=== PATIENT | female | born 2000 | race Caucasian/White ===

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

== ENCOUNTER 2024-12-05 13:33 | Emergency (ER) | payer BC, SELFPAY ==
[2024-12-05] VITALS (12 sets, daily range): BP systolic 109–178; BP diastolic 69–92; PULSE 80–158; RESP 11–24; TEMP 36.8–37.1; O2SAT 98–100; BMI 27.1
--- NOTE | 2024-12-05 13:39 | PC.NURSE ---
pt placed in seizure precautions.
--- NOTE | 2024-12-05 13:40 | ED_ITS ---
<Statement entered by Oscar Zheng MD - 12/06/24 04:17> I was consulted by the TRIXIE, and we discussed the complexity of the problems being addressed. I approve the treatment and management plan for this patient's care in the emergency department, thus performing a substantive portion of the medical decision making. Repeat EKG appears unchanged and is normal sinus rhythm, no STEMI. Patient provided seizure precautions by previous provider. Oscar Zheng MD Discharge Plan Disposition Patient Disposition: Home, Self-Care Condition: Good Prescriptions Prescriptions: No Action triamcinolone acetonide 0.1 % ointment 1 applic topical BID Qty: 30 0RF Referrals Follow up/Referrals: Stacy Martínez APRN [Primary Care Provider, Medical] - See instructions Activity Restrictions/Add. Instructions Additional Instructions/Restrictions: You were evaluated on an emergency basis. It is very important that you follow- up with your primary care provider and any specialist who we discussed within the next 2 days in order to better assess your health more comprehensively. For example, incidental findings on imaging or laboratory results that were performed today may be discovered, which do not require immediate medical care, but may impact your health in the future. If your symptoms worsen or persist, please return to the emergency department immediately for reassessment. Take all medications as prescribed. In queue for allowing me to participate in your health care, and I hope you feel better soon. Clinical Impressions Clinical Impression: Seizure Instructions Patient Instructions: DI for Seizure (Not Epilepsy/Seizure Disorder) Print Language Print Language: Sami Discharge ED Provider: Joseph Hanson General Adult HPI <Riri Perez - Last Filed: 12/05/24 17:52> General Chief complaint: Neuro Symptoms/Deficit Stated complaint: Poss Seizure Time Seen by Provider: 12/05/24 13:41 History of Present Illness HPI narrative: Independently interpreted by me rate is 146, rhythm is regular, axis is normal, no ST elevation anatomical contiguous leads, sinus tachycardia, QTc 394. 24-year-old female presents emergency department with complaints of seizure activity prior to arrival. Reports that she has a history of partial seizures and was followed by [facility] neurology. States that she has not had seizure-like activity for the past 3 years and was weaned off her medications approximately 3 years ago as well. She states that she recently developed poison paco and was given a steroid shot yesterday as well as starting antihistamines for treatment of the symptoms. She states today seizure-like activity was similar to her previous where she gets numb feeling all over her body with disorientation. She states that she does not lose consciousness. She also denies bowel or bladder incontinence. Related Data Previous Rx's ?Medication ?Instructions ?Recorded triamcinolone acetonide 0.1 % 1 applic topical BID #30 grams 12/04/24 topical ointment Allergies Allergy/AdvReac Type Severity Reaction Status Date / Time No Known Allergies Allergy Verified 06/25/24 18:43 <Joseph Hanson MD - Last Filed: 12/05/24 15:09> History of Present Illness HPI narrative: Independently interpreted by me rate is 146, rhythm is regular, axis is normal, no ST elevation anatomical contiguous leads, sinus tachycardia, QTc 394. PFSH <Riri Perez - Last Filed: 12/05/24 17:52> [facility] Disclaimer: The information contained in this section may have been updated after the patient was seen, as this information can be updated by other users. Medical History Cat scratch of forearm Cat scratch Social History Smoking Status: Never smoker alcohol intake: never current occupational status: student Travel in the last 8 weeks?: None housing: house Have you lived/traveled outside US in past 30 days?: No Contact w/someone who lives/traveled outside US past 30 days?: No Exposure to someone with infectious disease in past 14 days?: No Do you have a fever (greater than 100.4 F or 38 C)?: No Have you tested positive for COVID-19?: No Exposed to someone with COVID-19 in past 14 days?: No Do you have a sore throat?: No Do you have a cough?: No Do you have any weakness?: No Do you have any diarrhea?: No Are you experiencing any unusual bleeding?: No Do you have any muscle aches/pain?: No Do you have any abdominal pain?: No Are you experiencing loss of taste or smell?: No Other Medical History Have you received the Flu Vaccine for this season: No Have you received the Pneumonia Vaccine: No <Riri Perez - Last Filed: 12/05/24 17:52> Musculoskeletal Musculoskeletal: Reports numbness and Reports tingling Neurologic Neurologic: Reports confusion, Reports numbness and Reports tingling <Joseph Hanson MD - Last Filed: 12/05/24 15:09> ROS Obtained: Yes Systems reviewed as appropriate & no additional complaints except as documented Physical Exam <Riri Handleystan - Last Filed: 12/05/24 17:52> Narrative Physical exam: General: Awake, aware, in no acute distress HEENT: Normal cephalic, no evidence of trauma, PERRLA, EOMI CV: RRR, no murmurs, rubs, or gallops Pulm: CTA bilaterally with no rhonchi, rales, or wheezes ABD: Nontender, no swelling, guarding, or rebound Neuro: ANO x 4, GCS 15, no focal deficits noted Psych: Anxious but cooperative General General appearance: anxious Respiratory Respiratory exam: Present normal lung sounds bilaterally Cardiovascular Cardiovascular exam: Present tachycardia <Joseph Hanson MD - Last Filed: 12/05/24 15:09> General General appearance: alert and anxious Respiratory Respiratory exam: Absent respiratory distress Cardiovascular Cardiovascular exam: Present tachycardia Neurological Exam Neurological exam: Present alert and CN II-XII intact Medical Decision Making <Riripb Perez - Last Filed: 12/05/24 17:52> Medical Records Screening: Per USPSTF and CDC recommendations, given the prevalence of disease in our region, it is our hospital?s policy to screen for HIV and viral Hepatitis for all patients aged 18 and over and those with ongoing risk factors. Vital Signs: 12/05/24 13:46 12/05/24 13:49 12/05/24 14:01 Temperature 98.2 F 98.7 F Temperature Source Temporal Artery Scan Oral Pulse Rate 109 H 119 H Pulse Rate [Left Radial] 158 H Respiratory Rate 24 16 20 Blood Pressure 157/87 H 157/87 H Blood Pressure [Left Arm] 178/92 H Blood Pressure Mean 110 Blood Pressure Mean [Left Arm] 120 Blood Pressure Source [Left Arm] Automatic Cuff Blood Pressure Position [Left Arm] Sitting 02 Sat by Pulse Oximetry 100 99 98 Oxygen Delivery Method Room Air Room Air 12/05/24 14:17 12/05/24 14:30 12/05/24 15:01 Temperature Temperature Source Pulse Rate 92 H 92 H 111 H Pulse Rate [Left Radial] Respiratory Rate 16 16 21 Blood Pressure 124/74 131/83 135/82 Blood Pressure [Left Arm] Blood Pressure Mean 104 99 107 Blood Pressure Mean [Left Arm] Blood Pressure Source [Left Arm] Blood Pressure Position [Left Arm] 02 Sat by Pulse Oximetry 98 98 100 Oxygen Delivery Method 12/05/24 15:30 12/05/24 16:13 12/05/24 16:31 Temperature Temperature Source Pulse Rate 95 H 86 90 Pulse Rate [Left Radial] Respiratory Rate 13 11 L 18 Blood Pressure 136/91 H 109/73 L 132/69 Blood Pressure [Left Arm] Blood Pressure Mean Blood Pressure Mean [Left Arm] Blood Pressure Source [Left Arm] Blood Pressure Position [Left Arm] 02 Sat by Pulse Oximetry 99 98 100 Oxygen Delivery Method Lab Data Lab Results 12/05/24 13:41: POC Glucose 99 12/05/24 13:45: WBC 12.6 H, RBC 4.86, Hgb 15.2, Hct 42.1, MCV 86.6, MCH 31.3 H, MCHC 36.1 H, RDW 11.1 L, Plt Count 346, MPV 9.4, Neut % (Auto) 57.0, Lymph % (Auto) 34.3, [place] % (Auto) 7.1, Eos % (Auto) 1.1, Baso % (Auto) 0.3, Neut # (Auto) 7.2, Lymph # (Auto) 4.3, [place] # (Auto) 0.9, Eos # (Auto) 0.1, Baso # (Auto) 0.0, D-Dimer 0.49, Sodium 141, Potassium 3.3 L, Chloride 108 H, Carbon Dioxide 14 L, Anion Gap 22.3 H, BUN 8, Creatinine 0.80, Estimated Creat Clear 124, Estimated GFR 89, Est GFR ( Amer) 108, Glucose 113 H, Calcium 10.2, Magnesium 1.6, Total Bilirubin 0.6, AST 41 H, ALT 28, Alkaline Phosphatase 80, Troponin I < 0.01, Total Protein 7.8, Albumin 5.3 H, Globulin 2.5, A lbumin/Globulin Ratio 2.1 H, TSH 3.87, Free T4 1.12, HCG, Quant < 2 12/05/24 14:13: Urine Color Yellow, Urine Appearance Clear, Urine pH 6.0, Ur Specific Wheeler 1.015, Urine Protein Negative, Urine Glucose (UA) Negative, Urine Ketones Negative, Urine Blood 2+ A, Urine Nitrate Negative, Urine Bilirubin Negative, Urine Urobilinogen 0.2, Ur Leukocyte Esterase 1+ A, Urine RBC Occasional, Urine WBC 5-10, Ur Squamous Epith Cells 5-10, Urine Bacteria 2+, Urine Opiates Screen Negative, Urine Methadone Screen Negative, Ur Barbituates Screen Negative, Ur Phencyclidine Scrn Negative, Ur Amphetamines Screen Negative, U Benzodiazepines Scrn Negative, Urine Cocaine Screen Negative, U Marijuana (THC) Screen Negative 12/05/24 16:35: Troponin I < 0.01 12/05/24 13:45 12/05/24 13:45 Orders (Tests/Meds): ED MEDICATIONS Discontinued Medications Generic Name Dose Route Start Last Admin Trade Name Freq PRN Reason Stop Dose Admin Diazepam 2.5 mg 12/05/24 14:55 12/05/24 15:06 Diazepam 10mg/2ml Syringe IV 12/05/24 14:56 2.5 mg ONCE ONE Administration Sodium Chloride 1,000 mls @ 999 mls/hr 12/05/24 13:50 12/05/24 16:32 Sod Chlor 0.9% 1000ml Bag IV 12/05/24 14:50 Infused .Q1H1M ONE Infusion Ondansetron HCl 4 mg 12/05/24 13:50 12/05/24 14:00 Ondansetron 4mg/2ml Vial IV 12/05/24 13:51 4 mg ONCE ONE Administration Potassium Chloride 20 meq 12/05/24 15:53 12/05/24 15:56 Potassium Chloride 20meq Tab PO 12/05/24 15:54 20 meq ONCE ONE Administration ORDERS Category Date Time Status XR chest portable Stat Exams 12/05/24 14:30 Completed CBC w/Auto Diff [Complete Blood Count Auto Diff] Stat Lab 12/05/24 13:45 Completed CMP [Comprehensive Metabolic Panel] Stat Lab 12/05/24 13:45 Completed D-Dimer Stat Lab 12/05/24 13:45 Completed Drug Screen,Urine Stat Lab 12/05/24 14:13 Completed Free T4 (Free Thyroxine) Stat Lab 12/05/24 13:45 Completed HCG,Quantitative Stat Lab 12/05/24 13:45 Completed Magnesium Stat Lab 12/05/24 13:45 Completed POC Glucose,Bedside Routine Lab 12/05/24 13:41 Completed TSH [Thyroid Stimulating Hormone] Stat Lab 12/05/24 13:45 Completed Troponin I Q3H Lab 12/05/24 16:35 Completed Troponin I Q3H Lab 12/05/24 20:45 Ordered Troponin I Stat Lab 12/05/24 13:45 Completed Urinalysis and Microscopic Stat Lab 12/05/24 14:13 Completed Urine Culture Stat Micro 12/05/24 14:13 Received Medical Decision Narrative: Initial impression of presenting illness: 24-year-old female with a history of complex partial seizures presents to the emergency department with complaints of seizure prior to arrival. Patient reports that the seizure was similar to her previous where she is has numbness in her extremities as well as disorientation. She states she does not lose consciousness. Patient was followed by [facility] neurology however she has not had a seizure for the past 3 years and was weaned off her medications approximately 3 years ago. She states that she recently developed poison paco and was given a steroid shot today as well started on antihistamines. Patient does complain of nausea at this time. Differential diagnosis includes but is not limited to: Electrolyte abnormality, dehydration, thyroid disease, , reoccurrence of complex partial seizures Patient arrives hemodynamically stable, afebrile, without respiratory distress with vital signs interpreted by myself. Initial physical exam unremarkable except for patient being anxious. No focal neurological deficits are noted at this time. Patient is alert and oriented. Patient moving all extremities without difficulty. Initial diagnostic plan: Laboratory studies, seizure precautions, normal saline bolus for hydration, Zofran for nausea Patient called out on the call light stating that she was feeling chest pain with dizziness, and shortness of breath. She states that she had the symptoms earlier today when she was having her seizure activity however it subsided and has not returned. Will add on chest x-ray, D-dimer, troponins. EKG was completed when patient first arrived to the emergency department that showed sinus tachycardia with no evidence of ischemic changes. Joseph Hanson: I was consulted by the TRIXIE, and we discussed the complexity of the problems being addressed. I approved the treatment and management plan for this patient's care in the emergency department, thus performing a substantive portion of the medical decision making. Full hematologic lab results and repeat evaluation pending at time of transition of care to Dr. Zheng. I agree with the initial workup of this patient. Results from initial plan were reviewed and interpreted by myself, pertinent positives include: Potassium was 3.3, rest of laboratory studies were nonactionable. Chest x-ray was also unremarkable for acute findings. EKG was also unremarkable with no evidence of ischemic changes. Urinalysis was positive for 2+ bacteria however there was 5-10 epithelial cells per high-power field. Interventions in the ED: Patient was given oral potassium for supplementation as well as IV Valium for treatment of her anxiety. Patient was made aware of the results and the findings, upon reevaluation patient has remained stable throughout stay, symptoms have improved. Upon reevaluation patient is resting comfortably in bed with no signs of acute distress. Her vital signs have remained stable. She is tolerating p.o. without difficulty Consultation/discussion with other physicians: Reviewed patient's presenting complaint as well as workup findings with ED attending Dr. Otto. I also spoke with [facility] neurologist who states that they have not seen patient in their facility since 2019 therefore she was no longer an active patient and she was unable to give recommendations as this patient is now an adult. Disposition: Reviewed finding today's workup with patient and mother and informed no acute abnormalities were noted. Reiterated the fact that patient should not be driving for the next 90 days or until cleared by neurology. Recommended that she reach out to her primary care provider for referral to neurologist to schedule close outpatient follow-up for evaluation of her breakthrough seizure. Ducted her to return to the emergency department any new or worsening symptoms. Patient is agreeable to plan of care. Patient made aware of findings and had a detailed discussion with symptomatic care and return precautions, patient voiced understanding. <Josehp Hanson MD - Last Filed: 12/05/24 15:09> Isra Inquiry Pt receiving controlled substance: No Vital Signs: 12/05/24 13:46 12/05/24 13:49 12/05/24 14:01 Temperature 98.2 F 98.7 F Temperature Source Temporal Artery Scan Oral Pulse Rate 109 H 119 H Pulse Rate [Left Radial] 158 H Respiratory Rate 24 16 20 Blood Pressure 157/87 H 157/87 H Blood Pressure [Left Arm] 178/92 H Blood Pressure Mean 110 Blood Pressure Mean [Left Arm] 120 Blood Pressure Source [Left Arm] Automatic Cuff Blood Pressure Position [Left Arm] Sitting 02 Sat by Pulse Oximetry 100 99 98 Oxygen Delivery Method Room Air Room Air 12/05/24 14:17 12/05/24 14:30 12/05/24 15:01 Temperature Temperature Source Pulse Rate 92 H 92 H 111 H Pulse Rate [Left Radial] Respiratory Rate 16 16 21 Blood Pressure 124/74 131/83 135/82 Blood Pressure [Left Arm] Blood Pressure Mean 104 99 107 Blood Pressure Mean [Left Arm] Blood Pressure Source [Left Arm] Blood Pressure Position [Left Arm] 02 Sat by Pulse Oximetry 98 98 100 Oxygen Delivery Method 12/05/24 15:30 12/05/24 16:13 12/05/24 16:31 Temperature Temperature Source Pulse Rate 95 H 86 90 Pulse Rate [Left Radial] Respiratory Rate 13 11 L 18 Blood Pressure 136/91 H 109/73 L 132/69 Blood Pressure [Left Arm] Blood Pressure Mean Blood Pressure Mean [Left Arm] Blood Pressure Source [Left Arm] Blood Pressure Position [Left Arm] 02 Sat by Pulse Oximetry 99 98 100 Oxygen Delivery Method Lab Data Lab Results 12/05/24 13:41: POC Glucose 99 12/05/24 13:45: WBC 12.6 H, RBC 4.86, Hgb 15.2, Hct 42.1, MCV 86.6, MCH 31.3 H, MCHC 36.1 H, RDW 11.1 L, Plt Count 346, MPV 9.4, Neut % (Auto) 57.0, Lymph % (Auto) 34.3, [place] % (Auto) 7.1, Eos % (Auto) 1.1, Baso % (Auto) 0.3, Neut # (Auto) 7.2, Lymph # (Auto) 4.3, [place] # (Auto) 0.9, Eos # (Auto) 0.1, Baso # (Auto) 0.0, D-Dimer 0.49, Sodium 141, Potassium 3.3 L, Chloride 108 H, Carbon Dioxide 14 L, Anion Gap 22.3 H, BUN 8, Creatinine 0.80, Estimated Creat Clear 124, Estimated GFR 89, Est GFR ( Amer) 108, Glucose 113 H, Calcium 10.2, Magnesium 1.6, Total Bilirubin 0.6, AST 41 H, ALT 28, Alkaline Phosphatase 80, Troponin I < 0.01, Total Protein 7.8, Albumin 5.3 H, Globulin 2.5, A lbumin/Globulin Ratio 2.1 H, TSH 3.87, Free T4 1.12, HCG, Quant < 2 12/05/24 14:13: Urine Color Yellow, Urine Appearance Clear, Urine pH 6.0, Ur Specific [place] 1.015, Urine Protein Negative, Urine Glucose (UA) Negative, Urine Ketones Negative, Urine Blood 2+ A, Urine Nitrate Negative, Urine Bilirubin Negative, Urine Urobilinogen 0.2, Ur Leukocyte Esterase 1+ A, Urine RBC Occasional, Urine WBC 5-10, Ur Squamous Epith Cells 5-10, Urine Bacteria 2+, Urine Opiates Screen Negative, Urine Methadone Screen Negative, Ur Barbituates Screen Negative, Ur Phencyclidine Scrn Negative, Ur Amphetamines Screen Negative, U Benzodiazepines Scrn Negative, Urine Cocaine Screen Negative, U Marijuana (THC) Screen Negative 12/05/24 16:35: Troponin I < 0.01 Orders (Tests/Meds): ED MEDICATIONS Discontinued Medications Generic Name Dose Route Start Last Admin Trade Name Chrisq PRN Reason Stop Dose Admin Diazepam 2.5 mg 12/05/24 14:55 12/05/24 15:06 Diazepam 10mg/2ml Syringe IV 12/05/24 14:56 2.5 mg ONCE ONE Administration Sodium Chloride 1,000 mls @ 999 mls/hr 12/05/24 13:50 12/05/24 16:32 Sod Chlor 0.9% 1000ml Bag IV 12/05/24 14:50 Infused .Q1H1M ONE Infusion Ondansetron HCl 4 mg 12/05/24 13:50 12/05/24 14:00 Ondansetron 4mg/2ml Vial IV 12/05/24 13:51 4 mg ONCE ONE Administration Potassium Chloride 20 meq 12/05/24 15:53 12/05/24 15:56 Potassium Chloride 20meq Tab PO 12/05/24 15:54 20 meq ONCE ONE Administration ORDERS Category Date Time Status XR chest portable Stat Exams 12/05/24 14:30 Completed CBC w/Auto Diff [Complete Blood Count Auto Diff] Stat Lab 12/05/24 13:45 Completed CMP [Comprehensive Metabolic Panel] Stat Lab 12/05/24 13:45 Completed D-Dimer Stat Lab 12/05/24 13:45 Completed Drug Screen,Urine Stat Lab 12/05/24 14:13 Completed Free T4 (Free Thyroxine) Stat Lab 12/05/24 13:45 Completed HCG,Quantitative Stat Lab 12/05/24 13:45 Completed Magnesium Stat Lab 12/05/24 13:45 Completed POC Glucose,Bedside Routine Lab 12/05/24 13:41 Completed TSH [Thyroid Stimulating Hormone] Stat Lab 12/05/24 13:45 Completed Troponin I Q3H Lab 12/05/24 16:35 Completed Troponin I Q3H Lab 12/05/24 20:45 Ordered Troponin I Stat Lab 12/05/24 13:45 Completed Urinalysis and Microscopic Stat Lab 12/05/24 14:13 Completed Urine Culture Stat Micro 12/05/24 14:13 Received Medical Decision Narrative: Initial impression of presenting illness: 24-year-old female with a history of complex partial seizures presents to the emergency department with complaints of seizure prior to arrival. Patient reports that the seizure was similar to her previous where she is has numbness in her extremities as well as disorientation. She states she does not lose consciousness. Patient was followed by [facility] neurology however she has not had a seizure for the past 3 years and was weaned off her medications approximately 3 years ago. She states that she recently developed poison paco and was given a steroid shot today as well started on antihistamines. Patient does complain of nausea at this time. Differential diagnosis includes but is not limited to: Electrolyte abnormality, dehydration, thyroid disease, , reoccurrence of complex partial seizures Patient arrives hemodynamically stable, afebrile, without respiratory distress with vital signs interpreted by myself. Initial physical exam unremarkable except for patient being anxious. No focal neurological deficits are noted at this time. Patient is alert and oriented. Patient moving all extremities without difficulty. Initial diagnostic plan: Laboratory studies, seizure precautions, normal saline bolus for hydration, Zofran for nausea Patient called out on the call light stating that she was feeling chest pain with dizziness, and shortness of breath. She states that she had the symptoms earlier today when she was having her seizure activity however it subsided and has not returned. Will add on chest x-ray, D-dimer, troponins. EKG was completed when patient first arrived to the emergency department that showed sinus tachycardia with no evidence of ischemic changes. Joseph Hanson: I was consulted by the TRIXIE, and we discussed the complexity of the problems being addressed. I approved the treatment and management plan for this patient's care in the emergency department, thus performing a substantive portion of the medical decision making. Full hematologic lab results and repeat evaluation pending at time of transition of care to Dr. Zheng. I agree with the initial workup of this patient. Critical Care <Joseph Hanson MD - Last Filed: 12/05/24 15:09> Critical Care Time Critical Care Time: No
--- NOTE | 2024-12-05 13:42 | PC.NURSE ---
FSBS 99 at this time.
[2024-12-05 13:47] LABS: POC Glucose,Bedside 99 gm/dL (70-110)
[2024-12-05 13:58] LABS: Hematocrit 42.1 % (37.0-47.0); Hemoglobin 15.2 g/dL (12.2-16.2); Immature Granulocytes % 0.2 %; Mean Corpuscular HGB Conc 36.1 g/dL (31.8-35.4); Mean Corpuscular Hemoglobin 31.3 pg (27.0-31.2); Mean Corpuscular Volume 86.6 fl (81-99); Nucleated Red Blood Cells % 0 %; Platelet Count 346 K/mm3 (142-424); Red Blood Count 4.86 M/mm3 (4.20-5.40); Red Cell Distribution Width-SD 35.0 fL; White Blood Count 12.6 K/mm3 (4.8-10.8)
[2024-12-05] MEDS: ONDANSETRON 4MG/2ML VIAL 4 MG IV (14:00)
[2024-12-05] MEDS: 0.9 % SODIUM CHLORIDE 1000ML 1,000 ML 999 ML IV (14:01)
[2024-12-05 14:12] LABS: Magnesium 1.6 mg/dl (1.6-2.3)
[2024-12-05 14:19] LABS: Microscopic, Urine URINE MICROSCOPIC (MICROSCOPIC)
[2024-12-05 14:21] LABS: Bilirubin,Urine Negative (Negative); Color,Urine YELLOW (Yellow); Glucose,Urine (UA) Negative (Negative); Ketones,Urine Negative (Negative); Leukocyte Esterase,Urine 1+ (Negative); PH,Urine 6.0 (5.0-8.5); Protein,Urine Negative (Negative); Urobilinogen,Urine 0.2 EU/dl (0.2)
[2024-12-05 14:27] LABS: Specific Gravity, Urine 1.015 (1.005-1.030)
--- NOTE | 2024-12-05 14:30 | XR_ITS ---
FINAL REPORT CLINICAL HISTORY: chest pain, heart racing FINDINGS: SINGLE VIEW CHEST The heart is normal in size. The mediastinum is unremarkable. The lungs are clear. There is no pneumothorax. IMPRESSION: No acute process. Reviewed, Interpreted and Dictated by Pantera Coates MD Transcribed by Helen Solorio Authenticated and [facility]
[2024-12-05 14:38] LABS: Amphetamine/Metha Screen,Urine Negative ng/ml (<1000)
[2024-12-05 14:39] LABS: Barbiturates Screen,Urine Negative ng/ml (<200)
[2024-12-05 14:40] LABS: Benzodiazepines Screen,Urine Negative ng/ml (<200)
[2024-12-05 14:43] LABS: Methadone Screen,Urine Negative ng/ml (<300)
[2024-12-05 14:44] LABS: Opiate Screen,Urine Negative ng/ml (<300)
[2024-12-05 14:44] LABS: Thyroid Stimulating Hormone 3.87 uIU/mL (0.465-4.68)
[2024-12-05 14:45] LABS: Free T4 (Free Thyroxine) 1.12 ng/dl (0.78-2.19)
[2024-12-05 14:45] LABS: Phencyclidine Screen,Urine Negative ng/ml (<25)
[2024-12-05] MEDS: diazePAM 10MG/2ML SYRINGE 2.5 MG IV (15:06)
[2024-12-05 15:17] LABS: D-Dimer 0.49 ug/mL (0.0-0.5)
[2024-12-05 15:22] LABS: Bacteria,Urine 2+ /lpf; RBC,Urine Occasional #/hpf (0-3)
[2024-12-05 15:39] LABS: Troponin I < 0.01 ng/ml (0.00-0.034)
[2024-12-05 15:47] LABS: Albumin Level 5.3 g/dl (3.5-5.0); Chloride 108 mmol/L (98-107); Potassium 3.3 mmoL/L (3.5-5.1); Sodium 141 mmol/L (136-145)
[2024-12-05 15:50] LABS: Alanine Aminotransferase 28 U/L (12-78); Albumin/Globulin Ratio 2.1 (1.1-1.8); Alkaline Phosphatase 80 U/L (38-126); Anion Gap 22.3 mEq/L (5-15); Aspartate Amino Transferase 41 U/L (14-36); Bilirubin,Total 0.6 mg/dl (0.2-1.3); Blood Urea Nitrogen 8 mg/dl (7-17); Calcium 10.2 mg/dl (8.4-10.2); Carbon Dioxide 14 mmol/L (22.0-30.0); Creatinine Clearance Estimated 124 mL/min (50-200); Creatinine,Serum 0.80 mg/dl (0.52-1.04); Estimated Glomerular Filt Rate 89 ml/min (>60); GFR (African American) 108 ML/MIN (>60); Globulin 2.5 g/dL (1.3-3.2); Glucose 113 mg/dl (74-100); Total Protein,Serum 7.8 g/dl (6.3-8.2)
[2024-12-05] MEDS: POTASSIUM CHLORIDE 20MEQ TAB 20 MEQ PO (15:56)
--- NOTE | 2024-12-05 16:14 | PC.NURSE ---
Called [facility] for a Neuro consult on this pt. HANK Perez is speaking with Dr Félix Stoll who is there fire control technician g for Neuro
--- NOTE | 2024-12-05 16:25 | PC.NURSE ---
Called [facility] for a Neuro consult on this pt. HANK Perez is speaking with Dr Whaley there traction power engineer Neuro for [facility]
[2024-12-05 17:40] LABS: Troponin I < 0.01 ng/ml (0.00-0.034)
--- NOTE | 2024-12-05 17:57 | ECG_ITS ---
APPROVED REPORT Exam: Resting ECG HR:88 bpm ECG Measurements Heart Rate 88 AXES ME 133 P 79 QRSd 84 QRS 88 QT 363 T 68 QTc 409 Conclusion SINUS RHYTHM NORMAL ECG UNCONFIRMED REPORT Normal sinus rhythm. No ST elevation or depression. QTc normal at 409 Electronically signed by : KD GREEN, 12/06/2024 00:57:51
== END 2024-12-05 18:23 | disposition home or self-care (01) ==
PROVIDERS: Nurse Practitioner Family; Emergency Provider Emergency Medicine; PCP Nurse Practitioner
DX: R07.89 Other chest pain (principal); R56.9 Unspecified convulsions; R06.02 Shortness of breath; R00.0 Tachycardia, unspecified; E87.6 Hypokalemia; R42 Dizziness and giddiness
CPT/HCPCS: 71045; 80053; 80307; 81001; 82962; 83735; 84439; 84443; 84484; 84702; 85025; 85378; 87086; 93005; 96361; 96374; 96375; 99285; J2405; J3360; J7030